=== PATIENT | female | born 2000 | race Caucasian/White ===

== ENCOUNTER 2023-04-27 10:09 | Emergency (ER) | payer BC, SELFPAY ==
[2023-04-27 10:15] VITALS: BP 139/86
--- NOTE | 2023-04-27 11:39 | ED.GENMED ---
History of Present Illness
General
Chief Complaint: Abdominal Symptoms
Source: patient
Exam Limitations: none
Time Seen by Provider: 04/27/23 11:11
Nursing documentation reviewed up to this point in time: agreed with
Travel History
Have you had any contact with someone who has COVID-19?: No
Do you have any symptoms of coronavirus? Fever > 100 degrees, chills, cough, shortness of breath, sore throat, loss of taste or smell, muscle aches, or headache?: No
History of Present Illness
History of Present Illness:
23 yr old female presents to the ED for evaluation. Patient reports for the past 2 days she has had upper abdominal pain which was worse today. She complains of feeling nauseous but has not had any vomiting. She does report the pain is worse
after eating. She also reports that the pain is worse with standing and stretching. She denies any injury. She denies any radiation of pain. She denies any lower abdominal pain, fever chills, urinary frequency urgency dysuria. No prior history
of reflux.
Past History
Past History
ED Past Medical History: Asthma and Other (SVT)
Social History
Tobacco: Non-smoker
Review of Systems
Review of Systems
Allergies reviewed?: Yes
All Other Systems: ROS reviewed and negative except as documented in HPI and ROS
Constitutional: Reports no symptoms
Respiratory: Reports no symptoms
Cardiac: Reports no symptoms
ABD/GI: Reports abdominal pain and nausea; Denies vomiting, diarrhea or constipated
: Reports no symptoms
Musculoskeletal: Reports no symptoms
Skin: Reports no symptoms
Neurological: Reports no symptoms
Psychiatric: Reports no symptoms
Phy Exam
General Physical Exam
General Presentation: no apparent distress
General age: appears stated age
General Skin: warm and dry
General Habitus: normal
General Mental: alert
General Hydration: appears well hydrated
Gastrointestinal Exam
Gastrointestinal Exam: non tender and soft
Neurological Exam
Neurological Exam: alert and oriented x3
Musculoskeletal Exam
Musculoskeletal Exam: full ROM
Skin Exam
Skin Exam: normal color and warm/dry
Psychiatric Exam
Psychiatric Exam: normal mood/affect
Course
Orders/Labs/Results
Orders:
Orders
04/27/23 11:38
Test Result ONCE
US Abdomen Complete/Upper Urgent
Comment:
Reason For Exam: upper abd pain worse after eating + nausea
04/27/23 11:53
Complete Blood Count/With Diff Urgent
Comprehensive Metabolic Panel Urgent
HCG, Serum Qualitative Screen Urgent
Lipase Urgent
04/27/23 13:25
Urinalysis Reflex To Culture Urgent
Date Specimen was Collected: 04/27/23
Time Specimen was Collected: 12:40
Urine Microscopic Reflex Cult Urgent
04/27/23 14:01
Vital Signs- Treatment ONCE
Frequency: Once
Abnormal Lab Results
04/27/23 04/27/23
11:53 13:25
Potassium 3.3 L mmol/L
(3.5-5.1)
Glucose 100 H mg/dl
(70-99)
Calcium 8.0 L mg/dl
(8.4-10.2)
Urine Ketones Trace A
(Negative)
Leukocyte Esterase Rfl Trace A
(Negative)
04/27/23 11:53
04/27/23 11:53
Vital Signs
Initial and Last Documented VS:
Initial Vital Signs
Temp Pulse Resp BP Pulse Ox
98.0 F 98 16 139/86 98
04/27/23 10:15 04/27/23 10:15 04/27/23 10:15 04/27/23 10:15 04/27/23 10:15
Last Documented Vital Signs
Temp Pulse Resp BP Pulse Ox
98.0 F 100 20 136/78 99
04/27/23 10:15 04/27/23 14:08 04/27/23 14:08 04/27/23 14:09 04/27/23 14:08
MDM/Problems Addressed
Differential Diagnosis Includes:
Not limited to reflux/GERD muscular pain
MDM/Problems Addressed:
Patient is a 23-year-old female who complains of upper abdominal pain worse after eating but she does report it is worse with stretching and lifting her arms over her head. No history of reflux. 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
and repetitive motion of lifting arms overhead. No obvious findings on labs abdomen soft and nontender, ultrasound negative. Possible muscle versus reflux will DC with antacid close outpatient follow-up
*Radiology
Radiology exam reviewed: radiology read reviewed
*Critical Care Note
Total Time (30-74mins, 75-104mins- exclusive of procedures): Not Applicable
ED Attending Note
-
Portions of this chart may have been created with voice recognition software.� Occasional wrong word or��sound alike� substitutions may have occurred due to the inherent limitations of voice recognition software.
Discharge Plan
Departure
Patient Disposition: Home (Routine Discharge)
Date of Disposition: 04/27/23
Time of Disposition: 14:01
Patient with high blood pressure during this ER visit?: Yes
Condition: Fair
Covid-19: Not Applicable
Discharge Problem:
Abdominal pain
Instructions: Pickett Diet, Abdominal Pain, BLOOD PRESSURE
Prescriptions:
New
pantoprazole [Protonix] 40 mg tablet,delayed release (DR/EC)
40 mg PO DAILY Qty: 14 0RF
No Action
metoprolol succinate [Toprol XL] 25 MG tablet extended release 24 hr
25 mg PO DAILY PRN (Reason: palpitations) Qty: 30 0RF
Referrals:
NONE,* [Family Provider] -
Stand Alone Forms: Return to Work
Activity Restrictions/Additional Instructions:
Pickett diet as discussed. A medication called Protonix for acid reflux was sent to your pharmacy take as directed daily for the next 2 weeks. Avoid spicy fried fatty foods avoid caffeine. Follow-up with a family doctor the next 1-2 days for
reevaluation .
return if any worsening of symptoms.
In addition may also try Tylenol for symptoms.
Interventions
Interventions:
*Risk Screen - Suicide Last Done: 04/27/23 11:22
*General Assessment Last Done: 04/27/23 11:22
*Neglect/Abuse Screening Last Done: 04/27/23 11:22
*ED COVID-19 Vaccine History Last Done: 04/27/23 10:15
*Nursing Disposition Last Done: 04/27/23 14:17
LZ-Xletcd-Ccrfwiithr Assessment Last Done: 04/27/23 11:22
Discharge Date and Time
Discharge Date/Time: 04/27/23 14:18
[2023-04-27 12:08] LABS: % Basophils 0.2 % (0-2); % Eosinophils 1.5 % (0-6); % Immature Granulocytes 0.2 % (0-0.5); % Lymphocytes 32.5 % (20.5-51.1); % Monocytes 5.3 % (1.7-9.3); % Neutrophils 60.3 % (42.2-75.2); Absolute Eosinophils 0.1 10^3/uL (0-0.7); Absolute Lymphocytes 1.7 10^3/uL (1.2-3.4); Absolute Monocytes 0.3 10^3/uL (0.1-0.6); Absolute Neutrophils 3.2 10^3/uL (1.4-6.5); Hematocrit 37.4 % (37.0-47.0); Mean Corp Hgb Conc. 34.8 g/dL (33.0-37.0); Mean Corpuscular Hgb 29.6 pg (27.0-31.0); Mean Corpuscular Volume 85.2 fL (81.0-99.0); Mean Platelet Volume 9.4 fL (7.4-10.4); Nucleated Red Blood Cells % 0 %; Platelet Count 183 10^3/uL (130-400); Red Blood Cell Count 4.39 10^6/uL (4.20-5.40); Red Cell Dist. Width 12.7 % (11.5-14.5); White Blood Cell Count 5.3 10^3/uL (4.8-10.8)
[2023-04-27 12:21] LABS: HCG, Serum Qualitative Screen Negative
[2023-04-27 12:27] LABS: ALT (SGPT) 19 U/L (0-35); AST (SGOT) 21 U/L (14-36); Albumin 3.5 g/dl (3.5-5.0); Alkaline Phosphatase 46 U/L (38-126); Blood Urea Nitrogen 12 mg/dl (7-17); Carbon Dioxide 23 mmol/L (22-30); Chloride 104 mmol/L (98-107); Glucose 100 mg/dl (70-99); Potassium 3.3 mmol/L (3.5-5.1); Sodium 136 mmol/L (135-145); Total Bilirubin 0.3 mg/dl (0.2-1.3); Total Protein 6.4 g/dl (6.3-8.2); eGFR > 60.00
[2023-04-27 12:48] LABS: Lipase 73 U/L (23-300)
[2023-04-27 13:38] LABS: Urine Albumin Negative (Neg - Trace); Urine Bilirubin Negative (Negative); Urine Character Slightly Cloudy (Clear); Urine Color Yellow; Urine Glucose Negative (Negative); Urine Ketone Trace (Negative); Urine Leukocyte Trace (Negative); Urine Nitrite Negative (Negative); Urine Occult Blood Negative (Negative); Urine Urobilinogen 1+ (Neg - 1+)
[2023-04-27 14:09] VITALS: BP 136/78
[2023-04-27 14:16] LABS: Urine Red Blood Cell 0-2 /HPF (0-2); Urine White Cell 0-2 /HPF (0-5)
== END 2023-04-27 14:18 | disposition home or self-care (01) ==
LOC: EMR 10:09
PROVIDERS: Nurse Practitioner; EMERGENCY PHYSICIAN Emergency Medicine
DX: R10.10 Upper abdominal pain, unspecified (principal); R11.0 Nausea; R03.0 Elevated blood-pressure reading, without diagnosis of hypertension
CPT/HCPCS: 99284; 76700; 80053; 81003; 81015; 83690; 84703; 85025